=== PATIENT | male | born 1945 | race African-American/Black ===

== ENCOUNTER → 2018-09-22 | Outpatient (CLI) | payer MEDICARE ==
[2014-09-19 09:45] VITALS: BP 140/78
[~2018-09-22] MED LIST: AMLO10TA4 PO; ASPI325T11 PO; ATEN50TA PO; CELE200C PO; CHOL500016 PO; DIPH25CA58 PO; INSU100V13 SQ; KRIL1CAP22 PO; LOSA100T14 PO; LOSA25TA54 PO; MAGN400C PO; MULT-208 PO; OMEP40CA5 PO; ONE A DAY MEN; RED600TA PO; SITA100T PO; TADA5TAB PO; UBIQ100C3 PO; trubiotics
--- NOTE | 2018-09-22 10:40 | KCIC ---
Abdominal aortic ultrasound for abdominal aortic aneurysm monitoring. TECHNIQUE AND FINDINGS: Real-time grayscale and color and spectral Doppler evaluation of the aorta and iliac arteries is performed. The aorta is patent with moderate multifocal atherosclerosis. Largest diameter seen proximally, measuring 3.2 x 3.1 cm. Maximum. Systolic velocity of the aorta is seen within the mid segment and 93 cm/s. Peak systolic velocity of the distal aorta is 49 cm/s. The bilateral iliac arteries are patent and nonaneurysmal, once again with atherosclerosis present. The peak systolic velocity of the right common iliac artery is 165 cm/s, constituting a 3 fold increase over the proximal aortic velocity. Flow is biphasic. The peak systolic velocity of the left common iliac artery is 114 cm/s. Flow is monophasic. IMPRESSION: 1. 3.2 cm proximal abdominal aortic aneurysm. 2. Moderate multifocal aortoiliac atherosclerosis. Based on velocity criteria, there may be hemodynamic significant stenoses within both common iliac arteries, particularly on the right. Clinical correlation is advised with consideration for CTA of the abdomen and pelvis if the patient demonstrates signs or symptoms of lower extremity arterial insufficiency. Electronically signed by: Tye Garza MD (09/22/2018 10:37 AM) [id number]
--- NOTE | 2018-09-22 13:04 | KCIC ---
Bilateral large and the arterial duplex ultrasound study without comparison for peripheral arterial disease, hypertension, GA, diabetes mellitus, atrial fibrillation, former smoker. TECHNIQUE AND FINDINGS: Real-time grayscale and color and spectral Doppler evaluation of the arteries of the largest of these is performed. There is moderate multifocal atherosclerosis in all distributions. Flow is biphasic throughout all distributions of the right lower extremity. Within the distal SFA on the right, there is a focal velocity elevation to 293 cm/s, compared with the proximal velocity of 111 cm/s. This likely signifies hemodynamically significant focal stenosis in this region. On the left, once again flow is biphasic throughout all distribution save for the dorsalis pedis artery which is monophasic. No focal velocity elevations are identified, however there is sustained decrease in velocities at the level of the distal SFA on the left, which persists throughout the remaining runoff vessels. This may signify a proximal hemodynamically significant stenosis. Incidentally noted in the left groin is a 4.0 x 0.6 x 2.9 cm lymph node. IMPRESSION: 1. Moderate to severe diffuse atherosclerosis in virtually all distributions. 2. Probable hemodynamically significant stenosis of the right distal SFA. 3. Possible symmetric lesion involving the left distal SFA as well. Consider direct angiography and endovascular intervention. Electronically signed by: Tye Garza MD (09/22/2018 1:01 PM) [id number]
== END | disposition home or self-care (01) ==
LOC: KCIC US 09:36
PROVIDERS: ATTEND Family Medicine
DX: I71.4 Abdominal aortic aneurysm, without rupture (principal); I70.293 Other atherosclerosis of native arteries of extremities, bilateral legs; I70.0 Atherosclerosis of aorta; I10 Essential (primary) hypertension; E11.9 Type 2 diabetes mellitus without complications; I25.2 Old myocardial infarction; I48.91 Unspecified atrial fibrillation; Z87.891 Personal history of nicotine dependence
CPT/HCPCS: 76770; 93925